=== PATIENT | female | born 1970 | race Caucasian/White ===

== ENCOUNTER 2025-02-28 16:54 | Emergency (ER) | payer OTHER ==
[2025-02-28] MEDS ORDERED: NA CHLORIDE 0.9% 500 ML ONE (17:38)
[2025-02-28] MEDS ORDERED: MORPHINE 2 MG/ML SYR ONE (17:38)
[2025-02-28] MEDS ORDERED: ONDANSETRON 4 MG/2 ML VIAL ONE (17:38)
--- NOTE | 2025-02-28 18:02 | RAD REPORT ---
Exam:Hip Left 2 View HISTORY: Left hip pain FINDINGS: No fracture or dislocation seen Left hip prosthesis in good position. No evidence of loosening. Fallopian tube coils in place within the pelvis
--- NOTE | 2025-02-28 18:03 | RAD REPORT ---
EXAM:Femur Left CLINICAL HISTORY: Left leg pain FINDINGS: No fracture seen No bony lesion noted No evidence of loosening of the left hip prosthesis.
--- NOTE | 2025-02-28 19:08 | RAD REPORT ---
EXAM:Extremity Venous Uni Ltd HISTORY: Left leg pain TECHNIQUE: Sonographic evaluation left lower extremity performed.Grayscale, color and spectral analys is performed on all vessels COMPARISON: None. FINDINGS: Left common femoral, superficial femoral, greater saphenous, popliteal and posterior tibial veins are compressible and demonstrate augmentation. Doppler demonstrates good flow. IMPRESSION: No evidence of deep venous thrombosis involving the left lower extremity.
--- NOTE | 2025-02-28 19:16 | EDPHYS ---
Physician Documentation [facility] Name: Delmy Ochoa Age: 54 yrs Sex: Female : 1970 Arrival Date: 02/28/2025 Time: 16:54 Bed 16 Private MD: ED Physician Rigo Osborne HPI: 02/28 17:20 This 54 yrs old Female presents to ER via Unassigned with complaints of Hip Pain. kb 17:23 Pt is a 54 year old female who presents for left hip pain. States she had a total hip kb replacement in [place] on 02/16/25. States she has had pain since the surgery but it has only gotten worse. States it got worse after having intercourse and has progressed since then. States she has been using a walker, but today she couldn't bend her knee as well and took her last dose of pain medication. Got in touch with her dr and was told to come to the ER for evaluation. Follow up appt is on 03/14/25. . SENIOR ENLISTED ADVISOR: 17:23 LMP N/A - Post-menopause, Not jl7 Historical: - Allergies: 17:23 Depakote; jl7 17:23 Benadryl; jl7 - PMHx: 17:23 Hypothyroidism; Seizure; bile duct liver disease; jl7 - PSHx: 17:23 Cholecystectomy; Appendectomy; bowel resection; jl7 - Immunization history:: Adult Immunizations unknown. - Infectious Disease History:: Denies. - Social history:: Smoking status: Patient reports the use of cigarette tobacco products. ROS: 17:15 Constitutional: As per HPI kb Exam: 17:15 Constitutional: This is a well developed, well nourished patient who is awake, alert, kb and in no acute distress. Head/Face: Normocephalic, atraumatic. ENT: Moist Mucous membranes Cardiovascular: Regular rate Respiratory: Respirations even and unlabored. No increased work of breathing. Talking in full sentences Skin: Warm, dry with normal turgor. Normal color. Neuro: Awake and alert, GCS 15, oriented to person, place, time, and situation. 17:15 Musculoskeletal/extremity: Extremities: grossly normal except: noted in the lateral aspect of left thigh and left quadriceps: decreased ROM, pain, tenderness, surgical incision to left lateral hip, well approximated, no erythema, swelling, drainage, warmth, ROM: limited active range of motion due to pain, limited passive range of motion due to pain, Circulation is intact in all extremities. Sensation intact. Weight bearing: can bear weight with assistance only, uses walker, Vital Signs: 17:15 BP 114 / 66; Pulse 95; Resp 17; Pulse Ox 100% ; Weight 41.28 kg; Height 5 ft. 0 in. ; jl7 Pain 10/10; 18:35 BP 105 / 69; Pulse 81; Resp 16; Pulse Ox 100% on R/A; db 17:15 Body Mass Index 17.77 (41.28 kg, 152.4 cm) jl7 17:15 Pain Scale: Adult jl7 MDM: 16:56 Medical Screening Exam initiated kb 17:20 Data reviewed: vital signs, nurses notes. kb 19:14 Differential diagnosis: strain, fracture, postop pain. Historians other than the kb Patient: Daughter/Son: son. Counseling: I had a detailed discussion with the patient and/or guardian regarding the historical points, exam findings, and any diagnostic results supporting the discharge/admit diagnosis, radiology results, the need for outpatient follow up, a family practitioner, a orthopedic surgeon, to return to the emergency department if symptoms worsen or persist or if there are any questions or concerns that arise at home. 02/28 17:14 Order name: Hip Left 2 View XRAY; Complete Time: 18:03 kb 02/28 17:14 Order name: Femur Left XRAY; Complete Time: 18:13 kb 02/28 17:14 Order name: US Extremity Venous Unilateral Ltd; Complete Time: 19:08 kb 02/28 17:14 Order name: IV Start; Complete Time: 18:43 kb Administered Medications: 17:21 CANCELLED (Physician Discretion): morphineor iv 4 mg IVP once over 4 mins kb 18:35 Drug: Ondansetron IVP 4 mg IVP once; over 2 minutes Route: IVP; Site: left forearm; db 19:00 Follow up: Response: No adverse reaction rg5 18:35 Drug: NS 0.9% IV 500 ml 500 ml IV at 1 bolus once; to be given as a bolus over 30 db minutes Volume: 500 ml; Route: IV; Rate: 1 bolus; Site: left forearm; 19:37 Follow up: IV Status: Completed infusion rg5 18:35 Drug: morphine IVP or IV 2 mg IVP once over 4 mins Route: IVP; Infused Over: 4 mins; db Site: left forearm; 19:37 Follow up: Response: No adverse reaction; Pain is decreased rg5 Disposition Summary: 02/28/25 19:15 Discharge Ordered Notes: Location: Home kb Condition: Stable kb Diagnosis - Pain in left hip kb Followup: kb - With: Emergency Department - When: As needed - Reason: Worsening of condition Followup: kb - With: Private Physician - When: 2 - 3 days - Reason: Recheck today's complaints, Continuance of care, Re-evaluation by your physician Discharge Instructions: - Discharge Summary Sheet kb - Musculoskeletal Pain kb - Hip Pain kb Forms: - Medication Reconciliation Form kb - Antibiotic Education kb - Prescription Opioid Use kb - Patient Portal Instructions kb - Leadership Thank You Letter kb Prescriptions: - Diclofenac Sodium 75 mg Oral tablet, delayed release (enteric coated) - take 1 tablet ORAL route 2 times per day As needed; 30 tablet; Refills: 0, kb Product Selection Permitted - orphenadrine citrate 100 mg Oral Tablet Sustained Release - take 1 tablet ORAL route 2 times per day As needed; 20 tablet; Refills: 0, kb Product Selection Permitted Signatures: Dispatcher [employer] EDMS Christin Greene, GURU-C MANAGER SECURITY-Natalie Beasley RN RN jl7 Apryl Medina, BARRON RN db Kiran Nguyen RN rg5 Corrections: (The following items were deleted from the chart) 17:15 17:15 Hip Left 2 View+RAD.RAD.BRZ ordered. EDMS EDMS 17:15 17:15 Femur Left+RAD.RAD.BRZ ordered. EDMS EDMS 17:15 17:15 Extremity Venous Uni Ltd+US.RAD.BRZ ordered. EDMS EDMS 17:21 17:14 morphine IVP or IV 4 mg IVP once over 4 mins ordered. kb kb
--- NOTE | 2025-02-28 19:16 | ER ---
Nurse's Notes [facility] Name: Delmy Ochoa Age: 54 yrs Sex: Female : 1970 Arrival Date: 02/28/2025 Time: 16:54 Bed 16 Private MD: Diagnosis: Pain in left hip Presentation: 02/28 17:15 Chief complaint: Patient states: Left hip replacement 02-16-2025, worsening pain to left jl7 hip and thigh post intercourse. Coronavirus screen: At this time, the client does not indicate any symptoms associated with coronavirus-19. Ebola Screen: No symptoms or risks identified at this time. Initial Sepsis Screen: Does the patient meet any 2 criteria? No. Patient's initial sepsis screen is negative. Does the patient have a suspected source of infection? No. Patient's initial sepsis screen is negative. Risk Assessment: Do you want to hurt yourself or someone else? Patient reports no desire to harm self or others. Onset of symptoms is unknown. 17:15 Method Of Arrival: Ambulatory [facility] 17:15 Acuity: ODESSA 3 jl7 Triage Assessment: 17:23 General: Appears in no apparent distress. uncomfortable, Behavior is calm, cooperative, jl7 appropriate for age. Pain: Complains of pain in left leg Pain currently is 10 out of 10 on a pain scale. DIRECTOR [employer]: 17:23 LMP N/A - Post-menopause, Not jl7 Historical: - Allergies: 17:23 Depakote; jl7 17:23 Benadryl; jl7 - PMHx: 17:23 Hypothyroidism; Seizure; bile duct liver disease; jl7 - PSHx: 17:23 Cholecystectomy; Appendectomy; bowel resection; jl7 - Immunization history:: Adult Immunizations unknown. - Infectious Disease History:: Denies. - Social history:: Smoking status: Patient reports the use of cigarette tobacco products. Screenin:00 [facility] ED Fall Risk Assessment (Adult) History of falling in the last 3 months, db including since admission No falls in past 3 months (0 pts) Confusion or Disorientation No (0 pts) Intoxicated or Sedated No (0 pts) Impaired Gait No (0 pts) Mobility Assist Device Used No (0 pt) Altered Elimination No (0 pt) Score/Fall Risk Level 0 - 2 = Low Risk Oriented to surroundings, Maintained a safe environment. Abuse screen: Denies threats or abuse. Denies injuries from another. Nutritional screening: No deficits noted. Tuberculosis screening: No symptoms or risk factors identified. Assessment: 17:26 Reassessment: Patient appears in no apparent distress at this time. Patient and/or db family updated on plan of care and expected duration. Pain level reassessed. Patient is alert, oriented x 3, equal unlabored respirations, skin warm/dry/pink. General: Appears in no apparent distress. comfortable, Behavior is calm, cooperative. 18:30 Reassessment: Patient appears in no apparent distress at this time. Patient and/or db family updated on plan of care and expected duration. Pain level reassessed. Patient is alert, oriented x 3, equal unlabored respirations, skin warm/dry/pink. General: Appears in no apparent distress. comfortable, Behavior is calm, cooperative. Neuro: Level of Consciousness is awake, alert, obeys commands, Oriented to person, place, time, situation. Respiratory: Airway is patent Respiratory effort is even, unlabored, Respiratory pattern is regular, symmetrical. 18:44 Reassessment: Patient appears in no apparent distress at this time. Patient and/or db family updated on plan of care and expected duration. Pain level reassessed. Patient is alert, oriented x 3, equal unlabored respirations, skin warm/dry/pink. Vital Signs: 17:15 BP 114 / 66; Pulse 95; Resp 17; Pulse Ox 100% ; Weight 41.28 kg; Height 5 ft. 0 in. ; jl7 Pain 10/10; 18:35 BP 105 / 69; Pulse 81; Resp 16; Pulse Ox 100% on R/A; db 17:15 Body Mass Index 17.77 (41.28 kg, 152.4 cm) jl7 17:15 Pain Scale: Adult jl7 ED Course: 16:55 Patient arrived in ED. gl 16:56 Christin Greene FNP-C is [facility]. kb 16:56 Rigo Osborne MD is Attending Physician. kb 17:11 Apryl Medina, BARRON is Primary Nurse. db 17:23 Triage completed. jl7 17:23 Arm band placed on right wrist. jl7 17:34 Hip Left 2 View XRAY In Process Unspecified. EDMS 17:34 Femur Left XRAY In Process Unspecified. EDMS 17:55 Missed attempt(s): 22 gauge in left antecubital area. Bleeding controlled, band aid db applied, catheter tip intact. 18:00 Missed attempt(s): 22 gauge in right hand. Bleeding controlled, band aid applied, db catheter tip intact. 18:24 Accessed peripheral vein via ultrasound, utilizing dynamic ultrasound technique Clean \T\ cm10 dry. Dressing intact. 20g left forearm. 18:39 US Extremity Venous Unilateral Ltd In Process Unspecified. EDMS 18:44 Patient has correct armband on for positive identification. Bed in low position. Call db light in reach. Side rails up X 1. Pulse ox on. NIBP on. Warm blanket given. Pillow given. 19:10 No provider procedures requiring assistance completed. rg5 19:10 Patient did not have IV access during this emergency room visit. bleeding controlled, rg5 No redness/swelling at site. Pressure dressing applied. 19:35 Provided Education on: POST ER CARE. rg5 Administered Medications: 17:21 CANCELLED (Physician Discretion): morphineor iv 4 mg IVP once over 4 mins kb 18:35 Drug: Ondansetron IVP 4 mg IVP once; over 2 minutes Route: IVP; Site: left forearm; db 19:00 Follow up: Response: No adverse reaction rg5 18:35 Drug: NS 0.9% IV 500 ml 500 ml IV at 1 bolus once; to be given as a bolus over 30 db minutes Volume: 500 ml; Route: IV; Rate: 1 bolus; Site: left forearm; 19:37 Follow up: IV Status: Completed infusion rg5 18:35 Drug: morphine IVP or IV 2 mg IVP once over 4 mins Route: IVP; Infused Over: 4 mins; db Site: left forearm; 19:37 Follow up: Response: No adverse reaction; Pain is decreased rg5 Medication: 19:35 VIS not applicable for this client. rg5 Outcome: 19:10 Discharged to home via wheelchair, rg5 19:10 Condition: stable 19:10 Discharge instructions given to patient, 19:15 Discharge ordered by MD. kb 19:36 Patient left the ED. rg5 Signatures: Dispatcher [employer] EDMS Christin Greene, JINNY GARVEY-Natalie Beasley RN RN jl7 Apryl Medina RN RN db Martinez, Clarissa, RN RN cm10 Kiran Nguyen, RN RN rg5 Lesly Hdz, Reg Reg gl
[2025-02-28 20:07] VITALS: O2SAT 100
[2025-02-28 20:08] VITALS: BP 105/69
== END 2025-02-28 19:36 | disposition home or self-care (01) ==
LOC: ER 16:54
DX: M25.552 Pain in left hip (principal); Z96.642 Presence of left artificial hip joint; F17.210 Nicotine dependence, cigarettes, uncomplicated
CPT/HCPCS: 96361; 73502; 73552; 93971; 96375; 96374; 99284; J2270; J2405; J7040

== ENCOUNTER 2025-03-08 12:59 | Emergency (ER) | payer OTHER ==
[2025-03-08 14:15] LABS: Specific Gravity 1.015 (1.005-1.030); Transitional Epithelial <5 /HPF (None Seen); Urine Bacteria <20 /HPF (<20); Urine Bilirubin NEGATIVE (Negative); Urine Blood 2+ (Negative); Urine Clarity Extremely Turbid (Clear); Urine Color Yellow (Yellow); Urine Glucose NEGATIVE (Negative); Urine Ketones NEGATIVE (Negative); Urine Micro Reflex YN NO BILL MICROSCOPIC; Urine Mucus Slight /HPF (None Seen); Urine Nitrite NEGATIVE (Negative); Urine Protein NEGATIVE (Negative); Urine Urobilinogen Normal (Normal); Urine WBC 20-50 /HPF (<5); Urine pH 5.5 (5.0-7.0)
--- NOTE | 2025-03-08 14:50 | RAD REPORT ---
Extremity Venous Uni Ltd CLINICAL INDICATION: Female, 54 years old.Pain;Swelling TECHNIQUE: Complete duplex sonography of the lower extremity veins was performed of the affected limb . The examination included compression for vein patency, color Doppler imaging and flow augmentation in response to distal compression of the distal external iliac, common femoral, femoral, popliteal, peroneal, tibial and great saphenous veins. [id number]. COMPARISON: 02/28/2025 FINDINGS: Duplex sonography imaging demonstrates all deep veins examined to be fully compressible with spontane ous, phasic and augmented flow in the affected limb. IMPRESSION: No evidence of deep venous thrombosis in the left lower extremity.
--- NOTE | 2025-03-08 15:08 | RAD REPORT ---
Transvaginal Study Probe CLINICAL INDICATION: Female 54 years old VAGINAL BLEEDING TECHNIQUE: Real-time ultrasonography of the pelvis was performed transvaginally. Color and spectral D oppler evaluation of the ovaries was performed. [id number]. COMPARISON: No prior exam. FINDINGS: UTERUS AND CERVIX: The uterus measures 5 x 1.5 x 3.2 cm (cervix to fundus x AP x transverse). The james yayo is normal. No masses seen . The endometrium is normal,2 mm thickness. RIGHT OVARY: Normal The right ovary measures 1.1 x 0.7 x 1 cm with volume of 0.4 mL. Normal color and spectral Doppler evaluation of the right ovary.. LEFT OVARY: Normal The left ovary measures 1.1 x 0.5 x 1.2 cm with volume of 7 mL. Normal Color and spectral Doppler evaluation of the left ovary.. FREE FLUID: No free fluid. IMPRESSION: 1. No acute abnormality identified. No endometrial thickening. 2. Bilateral ovarian blood flow.
--- NOTE | 2025-03-08 15:20 | RAD REPORT ---
EXAM: Extremity Nonvascular Limited HISTORY: PAIN COMPARISON: None TECHNIQUE: Sonographic grayscale and color flow imaging of the left hip including the region of inter est as described by the patient. FINDINGS: 2 fluid collections identified at the left hip. There is one superficial collection measuring 10.1 cm x 0.6 cm which is minimally complex and could represent a small subincisional seroma. Deeper at the left hip, there is a complex collection measuring 6.3 x 3.9 x 2 cm which has a complex appearance but is primarily fluid. This could be a complex joint effusion or subacute postoperative hematoma. Either collection could also be subacute hematomas secondary to reported subacute trauma. IMPRESSION: Left hip fluid collections as noted above.
[2025-03-08] MEDS ORDERED: ONDANSETRON 4 MG/2 ML VIAL ONE (16:23)
[2025-03-08] MEDS ORDERED: MORPHINE 4 MG/ML SYR ONE (16:23)
[2025-03-08 16:27] LABS: Absolute Eosinophils 0.1 K/uL (0-0.5); Absolute Lymphocytes (CBC) 1.6 K/uL (0.7-4.9); Absolute Monocytes 0.4 K/uL (0.1-1.3); Absolute Neutrophil 3.2 K/uL (1.8-8.0); Basophils % 0.6 % (0-1.3); Eosinophils % 1.2 % (0-4.4); Hematocrit 34.8 % (36.0-45.0); Hemoglobin 11.8 g/dL (12.0-15.0); Lymphocytes % 30.7 % (15.3-44.8); MCH 31.2 pg (27.0-35.0); MCHC 33.8 g/dL (32.0-36.0); MCV 92.4 fL (80-100); MPV 6.9 fL (7.6-11.3); Monocytes % 6.8 % (3.3-12.3); Neutrophils % 60.7 % (41.7-73.7); Nucleated Red Blood Cells % 0.1 % (0-0); Platelets 334 thou/uL (152-406); RBC Red Blood Cell Count 3.76 M/uL (3.86-4.86); Red Cell Distribution Width 13.8 % (12.1-15.2)
[2025-03-08 16:48] LABS: Anion Gap 7.7 mEq/L (5.0-15.0); Potassium 3.7 mEq/L (3.5-5.1)
--- NOTE | 2025-03-08 17:23 | RAD REPORT ---
EXAMINATION: Abdomen Pelvis W Contrast CLINICAL INDICATION: Female, 54 years old.ABD PAIN TECHNIQUE: CT abdomen and pelvis was performed, after the administration of IV contrast, [facility]. Axial, sagittal and coronal reconstructions were obtained. One or more of the following dose reduction techniques were used: Automated exposure control, adjustment of the mA and/o r kV according to patient size, and/or iterative reconstruction. Unless otherwise specified, incidental findings do not require dedicated imaging follow-up. [id number]. COMPARISON: No prior exam. FINDINGS: LOWER CHEST: No acute process identified.No significant pericardial effusion. Mild circumferential th ickening of the distal esophagus which could reflect esophagitis. UPPER GI: Gastric bypass. LIVER: Mild intrahepatic biliary duct dilatation. No focal mass. GALLBLADDER/BILE DUCTS: Cholecystectomy. Moderate extrahepatic biliary ductal dilatation. This could be secondary to the post-cholecystectomy state. Recommend correlation with LFT's. If abnormal, consider MRCP for further evaluation. ? PANCREAS: No mass, ductal dilation, or yoko-pancreatic fluid. SPLEEN: Unremarkable. ADRENALS: No adrenal masses. KIDNEYS AND URETERS: No hydronephrosis.No suspicious renal mass.No renal calculi. ABDOMINAL AORTA AND OTHER VESSELS: Normal caliber aorta and IVC. PERITONEUM: No abnormal free fluid. No free air. LYMPH NODES: No pathologic lymphadenopathy. ABDOMINAL WALL: Unremarkable SMALL BOWEL/COLON: Small bowel has normal course and caliber. No colonic wall thickening or pericolon ic inflammatory changes.Appendix absent. Moderate formed stool burden. URINARY BLADDER: Underdistended but grossly unremarkable. REPRODUCTIVE ORGANS: Tubal ligation clips. MUSCULOSKELETAL: Remote compression fractures at T12 and L1. Bilateral hip arthroplasties. Enhancing fluid collection present along the left thigh in the region of the left proximal femur which measures 14.9 x 4.6 x 5.3 cm. A subincisional smaller fluid collection is present. ADDITIONAL FINDINGS: None. IMPRESSION: No definite acute intra-abdominal abnormality. Multiple incidental findings in the abdomen as noted a eusebio which are favored chronic. Large fluid collection along the left proximal femur may be a subacute postoperative hematoma or coul d be related to interval trauma given the patient's clinical history. A smaller subincisional fluid collection is present. Both collections enhance and have indeterminate sterility.
--- NOTE | 2025-03-08 19:10 | EDPHYS ---
Physician Documentation [facility] Name: Delmy Ochoa Age: 54 yrs Sex: Female : 1970 Arrival Date: 03/08/2025 Time: 12:59 Bed 14 Private MD: ED Physician Faizan Collins HPI: 03/08 13:33 This 54 yrs old Female presents to ER via Wheelchair with complaints of Vaginal sb4 Bleeding, Abdominal Pain. 13:33 worsening pelvic pain and vaginal bleeding x 4 months. states she went through sb4 menopause several years back and has not had any bleeding since. has been on estrogen and progesterone for several years as well. states that the blood was initially minimal and dark but now it is bright red blood and more frequent. states she saw a manager acquisition several months back, had a negative pap smear. additionally, states she had a left hip replacement about 1 month ago and is complaining of pain and swelling in her left thigh close to the incision site. 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 - Infectious Disease History:: Denies. - Social history:: Smoking status: unknown. ROS: 13:35 Positive for pelvic pain, vaginal bleeding, sb4 13:35 Constitutional: Negative for fever, chills, and weight loss, 13:35 MS/extremity: Positive for pain, tenderness, of the left hip, 13:35 All other systems are negative, Exam: 13:35 Constitutional: This is a well developed, well nourished patient who is awake, alert, sb4 and in no acute distress. Head/Face: Normocephalic, atraumatic. Eyes: Extra-ocular motions intact. Periorbital areas with no swelling, redness, or edema. ENT: Mucous membranes moist. Cardiovascular: Regular rate and rhythm with a normal S1 and S2. Respiratory: No increased work of breathing, no retractions or nasal flaring. Skin: Warm, dry with normal turgor. Normal color with no rashes, no lesions, and no evidence of cellulitis. 13:35 Abdomen/GI: Inspection: abdomen appears normal, Palpation: soft, mild abdominal tenderness, in the suprapubic area, 19:14 : Pelvic Exam: External exam: is normal, Speculum exam: normal findings, no bleeding sb4 is noted, no cervicitis, os that is closed, no tissue in cervix is seen, no tissue in vagina is seen, the nurse was present for the exam, Vital Signs: 13:20 BP 105 / 68; Pulse 88; Resp 16; Pulse Ox 100% on R/A; iw 16:05 BP 105 / 61; Pulse 82; Resp 18; Pulse Ox 100% on R/A; kj2 18:06 BP 100 / 69; Pulse 78; Resp 18; Pulse Ox 100% on R/A; kj2 19:32 BP 102 / 70; Pulse 20; Resp 20; Temp 98; Pulse Ox 100% ; kj2 MDM: 13:06 Medical Screening Exam initiated sb4 13:36 Differential diagnosis: malignancy, uterine cancer uterine fibroids, vaginosis, sb4 cervical cancer. 19:14 Data reviewed: vital signs, nurses notes, lab test result(s), radiologic studies, I sb4 have discussed the patient's presentation/case with the attending Emergency Department Physician; and as a result, I will discharge patient. Counseling: I had a detailed discussion with the patient and/or guardian regarding the historical points, exam findings, and any diagnostic results supporting the discharge/admit diagnosis, lab results, radiology results, the need for outpatient follow up, an OB/Gyne specialist, a orthopedic surgeon, to return to the emergency department if symptoms worsen or persist or if there are any questions or concerns that arise at home. 03/08 13:27 Order name: CBC with Diff; Complete Time: 16:40 iw 03/08 13:27 Order name: BMP; Complete Time: 16:49 iw 03/08 13:31 Order name: Type And Screen; Complete Time: 17:10 4 03/08 13:31 Order name: UAM; Complete Time: 14:17 sb4 03/08 13:27 Order name: Transvaginal Study (probe); Complete Time: 15:10 03/08 13:27 Order name: CT Abd/Pelvis - IV Contrast Only; Complete Time: 17:24 03/08 13:29 Order name: Extremity Venous Uni Ltd US; Complete Time: 14:51 03/08 13:29 Order name: US Extrmty Nonvasular Limited; Complete Time: 15:21 03/08 13:27 Order name: IV Start; Complete Time: 17:22 03/08 13:27 Order name: Labs collected and sent; Complete Time: 17:22 03/08 17:42 Order name: Pelvic Exam Setup; Complete Time: 18:05 sb4 Administered Medications: 16:29 Drug: morphine IVP or IV 4 mg IVP once over 4 mins Route: IVP; Infused Over: 4 mins; kj2 Site: right antecubital; 18:05 Follow up: Response: No adverse reaction kj2 16:29 Drug: Ondansetron IVP 4 mg IVP once; over 2 minutes Route: IVP; Site: right antecubital;kj2 18:05 Follow up: Response: No adverse reaction kj2 Disposition Summary: 03/08/25 19:10 Discharge Ordered Notes: Location: Home sb4 Problem: new sb4 Symptoms: have improved sb4 Condition: Stable sb4 Diagnosis - Abnormal uterine and vaginal bleeding, unspecified sb4 - Subacute postoperative hematoma - left thigh sb4 Followup: sb4 - With: Rizwana Phillips MD - When: 1 week - Reason: Further diagnostic work-up, Recheck today's complaints, Re-evaluation by your physician Followup: sb4 - With: Chilango Mayfield MD - When: 1 week - Reason: Further diagnostic work-up, Recheck today's complaints, Re-evaluation by your physician Discharge Instructions: - Discharge Summary Sheet sb4 - Hematoma, Sxom-ii-Orwf sb4 - Abnormal Uterine Bleeding, Uhom-dp-Kkag sb4 Forms: - Antibiotic Education sb4 - Patient Portal Instructions sb4 - Leadership Thank You Letter sb4 Prescriptions: - Diclofenac Sodium 75 mg Oral Tablet Sustained Release - take 1 tablet ORAL route 2 times per day; 30 tablet; Refills: 0, Product sb4 Selection Permitted - Macrobid 100 mg Oral Capsule - take 1 capsule ORAL route every 12 hours for 7 days; 14 capsule; Refills: 0, sb4 Product Selection Permitted Addendum: 03/10/2025 07:02 Co-signature as Attending Physician, Faizan Collins MD I reviewed the patient's care r n provided by the Advanced Practice Provider and agree with the diagnosis and treatment plan. Signatures: Dispatcher [employer] Seh Garcia, RN RN Faizan Bullard MD MD rn Brown, Sophia, PA-C PA-C sb4 Jill Fuller, RN RN kj2 Corrections: (The following items were deleted from the chart) 03/08 13:27 13:27 CBC+H.LAB.BRZ ordered. EDMS EDMS 13: 13:27 BASIC METABOLIC PANEL+C.LAB.BRZ ordered. EDMS EDMS 13: 13:27 Transvaginal Study (Probe)+US.RAD.BRZ ordered. EDMS EDMS 13: 13:27 Abdomen Pelvis W Con+CT.RAD.BRZ ordered. EDMS EDMS 13: 13:29 Extremity Venous Uni Ltd+US.RAD.BRZ ordered. EDMS EDMS 13: 13:29 Extrmty Nonvasular Limited+US.RAD.BRZ ordered. EDMS EDMS 13:35 13:33 worsening pelvic pain and vaginal bleeding x 4 months. states she went through sb4 menopause several years back and has not had any bleeding since. states that the blood was initially minimal and dark but now it is bright red blood and more frequent. states she saw a manager acquisition several months back, had a negative pap smear. additionally, states she had a left hip replacement about 1 month ago and is complaining of pain and swelling in her left thigh close to the incision site. sb4
--- NOTE | 2025-03-08 19:10 | ER ---
Nurse's Notes [facility] Name: Delmy Ochoa Age: 54 yrs Sex: Female : 1970 Arrival Date: 03/08/2025 Time: 12:59 Bed 14 Private MD: Diagnosis: Abnormal uterine and vaginal bleeding, unspecified;Subacute postoperative hematoma - left thigh Presentation: 03/08 13:20 Chief complaint: Patient states: has had brown spotting for past 4 months, now I iw started having bright red blood a month ago and it's like a period. Coronavirus screen: At this time, the client does not indicate any symptoms associated with coronavirus-19. Ebola Screen: No symptoms or risks identified at this time. Initial Sepsis Screen: Does the patient meet any 2 criteria? No. Patient's initial sepsis screen is negative. Does the patient have a suspected source of infection? No. Patient's initial sepsis screen is negative. Risk Assessment: Do you want to hurt yourself or someone else? Patient reports no desire to harm self or others. 13:20 Method Of Arrival: Wheelchair iw 13:20 Acuity: ODESSA 3 iw 18:09 Onset of symptoms was March 08, 2025. kj2 Triage Assessment: 14:35 General: Appears in no apparent distress. Behavior is cooperative. Pain: Complains of kj2 pain in pelvis Pain currently is 2 out of 10 on a pain scale. Neuro: Level of Consciousness is awake, alert, obeys commands, Oriented to person, place, time, situation. Cardiovascular: Patient's skin is warm and dry. : Reports vaginal bleeding that is bright red. 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 - Infectious Disease History:: Denies. - Social history:: Smoking status: unknown. Screenin:30 [facility] ED Fall Risk Assessment (Adult) History of falling in the last 3 months, kj2 including since admission No falls in past 3 months (0 pts) Confusion or Disorientation No (0 pts) Intoxicated or Sedated No (0 pts) Impaired Gait No (0 pts) Mobility Assist Device Used No (0 pt) Altered Elimination No (0 pt) Score/Fall Risk Level 0 - 2 = Low Risk Maintained a safe environment, Hourly rounding (assess needs \T\ fall precautionary measures) done. Abuse screen: Denies threats or abuse. Denies injuries from another. Nutritional screening: No deficits noted. Tuberculosis screening: No symptoms or risk factors identified. Assessment: 14:30 Reassessment: Patient appears in no apparent distress at this time. Patient and/or kj2 family updated on plan of care and expected duration. Pain level reassessed. Patient is alert, oriented x 3, equal unlabored respirations, skin warm/dry/pink. 15:00 Reassessment: Patient appears in no apparent distress at this time. Patient and/or kj2 family updated on plan of care and expected duration. Pain level reassessed. Patient is alert, oriented x 3, equal unlabored respirations, skin warm/dry/pink. 16:04 Reassessment: Patient appears in no apparent distress at this time. Patient and/or kj2 family updated on plan of care and expected duration. Pain level reassessed. Patient is alert, oriented x 3, equal unlabored respirations, skin warm/dry/pink. 17:00 Reassessment: Patient appears in no apparent distress at this time. Patient and/or kj2 family updated on plan of care and expected duration. Pain level reassessed. Patient is alert, oriented x 3, equal unlabored respirations, skin warm/dry/pink. 18:00 Reassessment: Patient appears in no apparent distress at this time. Patient and/or kj2 family updated on plan of care and expected duration. Pain level reassessed. Patient is alert, oriented x 3, equal unlabored respirations, skin warm/dry/pink. 19:32 Reassessment: Patient appears in no apparent distress at this time. Patient and/or kj2 family updated on plan of care and expected duration. Pain level reassessed. Patient is alert, oriented x 3, equal unlabored respirations, skin warm/dry/pink. Vital Signs: 13:20 BP 105 / 68; Pulse 88; Resp 16; Pulse Ox 100% on R/A; iw 16:05 BP 105 / 61; Pulse 82; Resp 18; Pulse Ox 100% on R/A; kj2 18:06 BP 100 / 69; Pulse 78; Resp 18; Pulse Ox 100% on R/A; kj2 19:32 BP 102 / 70; Pulse 20; Resp 20; Temp 98; Pulse Ox 100% ; kj2 ED Course: 13:03 Patient arrived in ED. mr 13:03 [facility] sb4 13:03 Faizan Collins MD is Attending Physician. sb4 13:21 Triage completed. iw 13:36 Kendra Cho, RN is Primary Nurse. me1 13:49 Urine collected: clean catch specimen, cloudy. me1 13:49 UAM Sent. me1 14:21 Cadence Quach, RN is Primary Nurse. ld1 14:27 Transvaginal Study (probe) In Process Unspecified. EDMS 14:27 Extremity Venous Uni Ltd US In Process Unspecified. EDMS 14:27 US Extrmty Nonvasular Limited In Process Unspecified. EDMS 14:30 Arm band placed on Patient placed in an exam room. kj2 14:30 Patient has correct armband on for positive identification. Bed in low position. Call kj2 light in reach. Provided Education on: call light. 14:40 Missed attempt(s): 20 gauge in right upper arm. kj2 15:33 Radiology exam delayed due to lab results not completed at this time. (BUN/Creatinine) vm2 IV insertion attempt and/or patient not having appropriate IV at this time. 17:11 CT Abd/Pelvis - IV Contrast Only In Process Unspecified. EDMS 19:09 Rizwana Phillips MD is Referral Physician. sb4 19:09 Chilango Mayfield MD is Referral Physician. sb4 19:31 No provider procedures requiring assistance completed. IV discontinued, intact, kj2 bleeding controlled, No redness/swelling at site. Pressure dressing applied. Administered Medications: 16:29 Drug: morphine IVP or IV 4 mg IVP once over 4 mins Route: IVP; Infused Over: 4 mins; kj2 Site: right antecubital; 18:05 Follow up: Response: No adverse reaction kj2 16:29 Drug: Ondansetron IVP 4 mg IVP once; over 2 minutes Route: IVP; Site: right antecubital;kj2 18:05 Follow up: Response: No adverse reaction kj2 Medication: 18:09 VIS not applicable for this client. kj2 Outcome: 19:10 Discharge ordered by . mane4 19:31 Discharged to home ambulatory, with family, kj2 19:31 Condition: stable 19:31 Discharge instructions given to patient, family, Instructed on discharge instructions, follow up and referral plans. Demonstrated understanding of instructions, follow-up care, 19:48 Patient left the ED. kj2 Signatures: Dispatcher [employer] EDUT Vanesa Sandra, Reg Reg mr She Parham, RN RN Rosalia Mcclendon 2 Cadence Quach RN RN ld1 Carissa Kaminski, PA-C PA-C sb4 Kendra Cho, RN RN me1 Jill Fuller, RN RN kj2
[2025-03-09 07:34] VITALS: O2SAT 100
[2025-03-09 07:39] VITALS: BP 102/70; TEMP 98
== END 2025-03-08 19:48 | disposition home or self-care (01) ==
LOC: ER 12:59
DX: N93.9 Abnormal uterine and vaginal bleeding, unspecified (principal); L76.32 Postprocedural hematoma of skin and subcutaneous tissue following other procedure; Z96.642 Presence of left artificial hip joint
CPT/HCPCS: 85025; 81001; 80048; 36415; 86900; 86850; 86901; 74177; 93971; 76830; 76882; Q9967; J2405

== ENCOUNTER 2025-03-14 10:51 | Emergency (ER) | payer OTHER ==
--- OUTSIDE RECORDS SUMMARY | 2025-03-14 10:54 | XMS REPORT | Continuity of Care Document ---
Author Name Unknown Address [address] [place] [address] Address [address] [place] [address] [address] [place] [address] Care Team Providers Care Surveyor Oil Well Directional Name Role Phone Unavailable Unavailable Unavailable Encounters Start Date/Time End Date/Time Encounter Type Admission Type Attending Clinicians Care Facility Care Department Encounter ID Source 2025-03-11 10:05:27 2025-03-11 10:05:[address] [facility] [id number] [address]
--- NOTE | 2025-03-14 14:09 | EDPHYS ---
Physician Documentation [facility] Name: Delmy Ochoa Age: 54 yrs Sex: Female : 1970 Arrival Date: 03/14/2025 Time: 10:51 Bed IW1 Private MD: ED Physician Stanislav Giordano HPI: 03/14 11:43 This 54 yrs old Female presents to ER via Wheelchair with complaints of Nausea, Leg jj9 Pain, Hip Pain, Groin Pain. 11:43 54-year-old female comes emergency department complaining of worsening left hip pain. jj9 She has been seen before for this pain. This is related to recent total hip replacement she had done a month ago at [facility]. She denies fever, chills, nausea, vomiting.. Historical: - Allergies: 11:24 Benadryl; ap3 11:24 Depakote; ap3 - PMHx: 11:24 bile duct liver disease; colon cancer; Hypothyroidism; Seizure; ap3 - PSHx: 11:24 Appendectomy; bowel resection; Cholecystectomy; ap3 - Immunization history:: Adult Immunizations up to date. - Infectious Disease History:: Denies. - Social history:: Smoking status: Patient reports the use of cigarette tobacco products. ROS: 11:44 Constitutional: Negative for fever, chills, and weight loss, Eyes: Negative for injury, jj9 pain, redness, and discharge, ENT: Negative for injury, pain, and discharge, Neck: Negative for injury, pain, and swelling, Cardiovascular: Negative for chest pain, palpitations, and edema, Respiratory: Negative for shortness of breath, cough, wheezing, and pleuritic chest pain, Abdomen/GI: Negative for abdominal pain, nausea, vomiting, diarrhea, and constipation, Back: Negative for injury and pain, MS/Extremity: Negative for injury and deformity, pain and decreased ROM to left hip area, post surgical changes, no erythema or blistering formation. Area of induration around the surgical scar Skin: Negative for injury, rash, and discoloration, Neuro: Negative for headache, weakness, numbness, tingling, and seizure, Psych: Negative for depression, anxiety, suicide ideation, homicidal ideation, and hallucinations, Allergy/Immunology: Negative for hives, rash, and allergies, Endocrine: Negative for neck swelling, polydipsia, polyuria, polyphagia, and marked weight changes, Hematologic/Lymphatic: Negative for swollen nodes, abnormal bleeding, and unusual bruising, Exam: 11:45 Constitutional: This is a well developed, well nourished patient who is awake, alert, jj9 and in no acute distress. Head/Face: Normocephalic, atraumatic. Eyes: Pupils equal round and reactive to light, extra-ocular motions intact. Lids and lashes normal. Conjunctiva and sclera are non-icteric and not injected. Cornea within normal limits. Periorbital areas with no swelling, redness, or edema. ENT: Nares patent. No nasal discharge, no septal abnormalities noted. Tympanic membranes are normal and external auditory canals are clear. Oropharynx with no redness, swelling, or masses, exudates, or evidence of obstruction, uvula midline. Mucous membranes moist. Neck: Trachea midline, no thyromegaly or masses palpated, and no cervical lymphadenopathy. Supple, full range of motion without nuchal rigidity, or vertebral point tenderness. No Meningismus. Chest/axilla: Normal chest wall appearance and motion. Nontender with no deformity. No lesions are appreciated. Cardiovascular: Regular rate and rhythm with a normal S1 and S2. No gallops, murmurs, or rubs. Normal PMI, no JVD. No pulse deficits. Respiratory: Lungs have equal breath sounds bilaterally, clear to auscultation and percussion. No rales, rhonchi or wheezes noted. No increased work of breathing, no retractions or nasal flaring. Abdomen/GI: Soft, non-tender, with normal bowel sounds. No distension or tympany. No guarding or rebound. No evidence of tenderness throughout. Back: No spinal tenderness. No costovertebral tenderness. Full range of motion. Skin: Warm, dry with normal turgor. Normal color with no rashes, no lesions, and no evidence of cellulitis. MS/ Extremity: Pulses equal, no cyanosis. Neurovascular intact. Full, normal range of motion. normal scar, no bruising, no erythema or discharge. no obvious signs abscess or fluctuance to the area. Neuro: Awake and alert, GCS 15, oriented to person, place, time, and situation. Cranial nerves II-XII grossly intact. Motor strength 5/5 in all extremities. Sensory grossly intact. Cerebellar exam normal. Normal gait. Psych: Awake, alert, with orientation to person, place and time. Behavior, mood, and affect are within normal limits. Vital Signs: 11:21 BP 92 / 74; Pulse 98; Resp 19; Temp 97.7(O); Pulse Ox 100% on R/A; Weight 43.18 kg; ap3 Pain 10/10; 11:21 Pain Scale: Adult ap3 MDM: 11:27 Medical Screening Exam initiated 17:24 Data reviewed: vital signs, nurses notes. 03/14 11:36 Order name: IV Saline Lock 03/14 11:36 Order name: Labs collected and sent 9 Administered Medications: No medications were administered Disposition: 17:24 Co-signature as Attending Physician, Stanislav Giordano MD. jj9 Disposition Summary: 03/14/25 14:08 Eloped Notes: Disposition: after being seen by provider flip7 Reason: unknown cristina Signatures: Dispatcher [employer] Natalie Haile RN RN jl7 Rosina Greer RN RN ap3 Stanislav Giordano MD MD jj9
--- NOTE | 2025-03-14 14:09 | ER ---
Nurse's Notes [facility] Name: Delmy Ochoa Age: 54 yrs Sex: Female : 1970 Arrival Date: 03/14/2025 Time: 10:51 Bed IW1 Private MD: Diagnosis: Presentation: 03/14 11:21 Chief complaint: Patient states: she has a left hip replacement in February, and has been ap3 having nausea, vomiting and weakness since then. Patient states she has been evaluated multiple times for this post surgery. patient reports she see's her cancer processor grain tomorrow morning for recent finding of uterine bleeding. patient currently rates here pain as a 10/10 on the pain scale. Coronavirus screen: At this time, the client does not indicate any symptoms associated with coronavirus-19. Ebola Screen: No symptoms or risks identified at this time. Initial Sepsis Screen: Does the patient meet any 2 criteria? HR > 90 bpm. Does the patient have a suspected source of infection? No. Patient's initial sepsis screen is negative. Risk Assessment: Do you want to hurt yourself or someone else? Patient reports no desire to harm self or others. Onset of symptoms was February 16, 2025. 11:21 Method Of Arrival: Wheelchair ap3 11:21 Acuity: ODESSA 3 ap3 Triage Assessment: 11:26 General: Appears in no apparent distress. Behavior is calm, cooperative, appropriate ap3 for age. Pain: Complains of pain in left hip and left leg Pain currently is 10 out of 10 on a pain scale. Neuro: Level of Consciousness is awake, alert, obeys commands, Oriented to person, place, time, situation. Cardiovascular: Patient's skin is warm and dry. Respiratory: Airway is patent Respiratory effort is even, unlabored, Respiratory pattern is regular, symmetrical. GI: Reports nausea, vomiting. : Reports vaginal bleeding that is. Historical: - Allergies: 11:24 Benadryl; ap3 11:24 Depakote; ap3 - PMHx: 11:24 bile duct liver disease; colon cancer; Hypothyroidism; Seizure; ap3 - PSHx: 11:24 Appendectomy; bowel resection; Cholecystectomy; ap3 - Immunization history:: Adult Immunizations up to date. - Infectious Disease History:: Denies. - Social history:: Smoking status: Patient reports the use of cigarette tobacco products. Screenin:26 Abuse screen: Denies threats or abuse. Nutritional screening: No deficits noted. ap3 Tuberculosis screening: No symptoms or risk factors identified. Vital Signs: 11:21 BP 92 / 74; Pulse 98; Resp 19; Temp 97.7(O); Pulse Ox 100% on R/A; Weight 43.18 kg; ap3 Pain 10/10; 11:21 Pain Scale: Adult ap3 ED Course: 10:54 Patient arrived in ED. im 11:02 Stanislav Giordano MD is Attending Physician. jj9 11:24 Triage completed. ap3 11:27 Arm band placed on right wrist. ap3 Administered Medications: No medications were administered Medication: 14:09 VIS not applicable for this client. jl7 Outcome: 14:08 Patient left the ED. jl7 14:10 Eloped from waiting room, after seeing physician Time discovered patient gone: March 14, jl7 2024 at 14:10 Signatures: Natalie Woo RN RN jl7 Rosina Greer RN RN ap3 Maria Alejandra Serna Stanislav Giordano MD MD jj9
[2025-03-14 15:32] VITALS: BP 92/74; TEMP 97.7; O2SAT 100
== END 2025-03-14 14:08 | disposition left against medical advice (07) ==
LOC: ER 10:51
DX: M25.552 Pain in left hip (principal); Z96.642 Presence of left artificial hip joint; Z72.0 Tobacco use
CPT/HCPCS: 99281